=== PATIENT | female | born 1995 | race Caucasian/White ===

== ENCOUNTER 2019-09-22 16:24 | Emergency (ER) | payer OTHER, BC ==
[~2019-09-22] VITALS: Ht 175.3 cm; Wt 75.0 kg
[2019-09-22 16:27] VITALS: BP 105/75
[2019-09-22] MEDS ORDERED: LIDOcaine 5% patch TP ONE (17:40)
[2019-09-22] MEDS ORDERED: ketorolac trometh. 30mg/ml inj. IM ONE (17:40)
[2019-09-22] MEDS ORDERED: CYCL-1 PO (17:43)
== END 2019-09-22 17:59 | disposition home or self-care (01) ==
LOC: ER 16:25
DX: S09.90XA Unspecified injury of head, initial encounter (principal); S13.4XXA Sprain of ligaments of cervical spine, initial encounter; R42 Dizziness and giddiness; R11.0 Nausea; M54.2 Cervicalgia; G43.909 Migraine, unspecified, not intractable, without status migrainosus; F32.9 Major depressive disorder, single episode, unspecified; Z88.0 Allergy status to penicillin; Z88.8 Allergy status to other drugs, medicaments and biological substances; Z79.899 Other long term (current) drug therapy; V89.2XXA Person injured in unspecified motor-vehicle accident, traffic, initial encounter; Y93.89 Activity, other specified; Y92.89 Other specified places as the place of occurrence of the external cause; Y99.8 Other external cause status
CPT/HCPCS: 70450; 72125; 96372; 99285; J1885